=== PATIENT | male | born 1970 | race Caucasian/White ===

== ENCOUNTER 2016-10-30 11:07 | Emergency (ER) | payer MEDICAID, OTHER ==
[~2016-10-30] VITALS: Ht 170.2 cm; Wt 104.5 kg
[2016-10-30 14:15] VITALS: BP 125/86
[2016-10-30] MEDS ORDERED: CYCLOBENZAPRINE HCL 10 MG TABLET PO ONE (14:30)
[2016-10-30] MEDS ORDERED: IBUPROFEN 800 MG TABLET PO ONE (14:30)
== END 2016-10-30 14:56 | disposition home or self-care (01) ==
LOC: EMS 11:08
DX: S23.3XXA Sprain of ligaments of thoracic spine, initial encounter (principal); S39.012A Strain of muscle, fascia and tendon of lower back, initial encounter; S16.1XXA Strain of muscle, fascia and tendon at neck level, initial encounter; V49.50XA Passenger injured in collision with unspecified motor vehicles in traffic accident, initial encounter; Y93.89 Activity, other specified; Y92.89 Other specified places as the place of occurrence of the external cause; Y99.8 Other external cause status
CPT/HCPCS: 99283

== ENCOUNTER 2018-02-14 08:19 | Emergency (ER) | payer OTHER ==
[~2018-02-14] VITALS: Ht 180.3 cm; Wt 111.4 kg
[2018-02-14 08:20] VITALS: BP 145/74
[2018-02-14] MEDS ORDERED: IBUPROFEN 800 MG TABLET PO ONE (08:45)
== END 2018-02-14 09:34 | disposition home or self-care (01) ==
LOC: EMS 08:19
DX: S50.01XA Contusion of right elbow, initial encounter (principal); W22.01XA Walked into wall, initial encounter; Y93.89 Activity, other specified; Y92.89 Other specified places as the place of occurrence of the external cause; Y99.8 Other external cause status
CPT/HCPCS: 99284

== ENCOUNTER 2020-09-03 07:50 | Emergency (ER) | payer OTHER ==
[~2020-09-03] VITALS: Ht 175.3 cm; Wt 105.5 kg
[2020-09-03] MEDS ORDERED: ACETAMINOPHEN 500 MG TABLET PO ONE (08:30)
[2020-09-03] MEDS ORDERED: KETOROLAC TROMETHAMINE 30 MG/ML VIAL IM ONE (08:30)
[2020-09-03 10:21] VITALS: BP 155/105
== END 2020-09-03 10:43 | disposition home or self-care (01) ==
LOC: EMS 08:00
DX: M25.562 Pain in left knee (principal); M25.561 Pain in right knee; M25.532 Pain in left wrist
CPT/HCPCS: 29125; 73110; 73562 ×2; 96372; 99284; J1885